=== PATIENT | male | born 1960 | race Caucasian/White ===

== ENCOUNTER 2021-08-10 00:30 | Day surgery (SDC) | payer BC, SELFPAY ==
[2021-07-21 14:38] VITALS: BMI 31.3
[2021-08-10 09:03] VITALS: BP 105/68; PULSE 99; RESP 18; TEMP 36.1; O2SAT 97; BMI 29.5
[2021-08-10] MEDS: LACTATED RINGERS 1,000 ML 150 ML IV CONT (09:19)
--- NOTE | 2021-08-10 09:40 | WPDGICN ---
Assessment and Plan Assessment and plan (1) Positive colorectal cancer screening using Cologuard test: Code(s): R19.5 - Other fecal abnormalities Status: Acute Assessment and Plan: Patient presents for screening colonoscopy. Found to have positive Cologuard test. Further recommendations will be given after endoscopy. GI Consult Note Consult date/time: 08/10/21 09:40 HPI: Efren Hinojosa is a 61 year old male Presents for screening colonoscopy. Patient recently found to have positive Cologuard test. Patient reports that his current weight appetite and bowel movements are normal. He denies abdominal pain. He has had no bleeding. Family history is noncontributory. Review of Systems Review of Systems: All systems reviewed & are unremarkable except as noted in HPI and below PMFSH Past Medical History Medical History Dyslipidemia Elevated lipids Erectile dysfunction Essential (primary) hypertension Mixed restrictive and obstructive lung disease Type 2 diabetes mellitus without complication, without long-term current use of insulin Surgical History Surgical History S/P cubital tunnel release 2005 - left Family History Family History Mother Patient's mother is Father Patient's father is Other Diabetes mellitus Family history of cardiovascular disease Hypertension Social History Social History (Updated 01/31/21 @ 13:09 by Leia Rodriguez [facility]) Smoking packs per day: 1.5 Smoking cigarettes per day: 30.0 Years smoked: 30 Smoking pack-years: 45.00 Smoking status: Current every day smoker Tobacco type: e-cigarettes/vaping Second hand tobacco smoke exposure: No Smoking end date: 05/05/20 Alcohol intake: current Alcohol use details: rarely Substance use: never Substance use type: does not use Living arrangements: with family Spiritual care concerns: No Meds Home Medications and Allergies Home Medications Medication Instructions Recorded Confirmed Type sildenafil 50 mg tablet 50 mg PO DAILY PRN 06/25/19 07/21/21 History rosuvastatin 10 mg tablet 10 mg PO DAILY tablet 12/08/20 07/21/21 History telmisartan 80 1 tablet PO DAILY tablet 12/08/20 07/21/21 History mg-hydrochlorothiazide 25 mg tablet albuterol sulfate 1 - 2 puff INHALATION Q4-6H PRN 07/21/21 07/21/21 History umeclidinium-vilanterol [Anoro 1 inh INHALATION DAILY 07/21/21 08/10/21 History Ellipta] Allergies Allergy/AdvReac Type Severity Reaction Status Date / Time No Known Allergies Allergy Verified 07/21/21 14:37 Vital Signs Vital Signs - 24 hr 08/10/21 09:03 Temperature 97 F L Pulse Rate 99 Respiratory Rate 18 Blood Pressure 105/68 Pulse Oximetry 97 Exam Narrative: Physical exam reveals patient to be alert. Vital signs stable. HEENT exam is unremarkable. Patient is anicteric. Lungs are clear to auscultation and percussion. Heart is without murmur or extra sounds. Abdominal exam bowel sounds are present soft nontender with no hepatosplenomegaly. Digital external rectal exam is normal.
--- NOTE | 2021-08-10 09:44 | WPDANESEPPF ---
Anes - Initial Pre Proc Eval Procedure: Operation Date: 08/10/21 10:00 Proposed Procedures p Colonoscopy - John Jimenez MD Date/Time: 08/10/21 09:44 Surgeon: John Jimenez MD Pre Op Diagnosis: positive cologuard Patient Data Age: 61 Gender: M Height: 1.68 m Weight: 83.1 kg Last Vital Signs Temp 97 F L 08/10/21 09:03 Pulse 99 08/10/21 09:03 Resp 18 08/10/21 09:03 BP 105/68 08/10/21 09:03 Pulse Ox 97 08/10/21 09:03 Allergies Allergy/AdvReac Type Severity Reaction Status Date / Time No Known Allergies Allergy Verified 07/21/21 14:37 Home Medications Medication Instructions Recorded Confirmed Type sildenafil 50 mg tablet 50 mg PO DAILY PRN 06/25/19 07/21/21 History rosuvastatin 10 mg tablet 10 mg PO DAILY tablet 12/08/20 07/21/21 History telmisartan 80 1 tablet PO DAILY tablet 12/08/20 07/21/21 History mg-hydrochlorothiazide 25 mg tablet albuterol sulfate 1 - 2 puff INHALATION Q4-6H PRN 07/21/21 07/21/21 History umeclidinium-vilanterol [Anoro 1 inh INHALATION DAILY 07/21/21 08/10/21 History Ellipta] Patient hx anesthesia problems: none Family hx anesthesia problems: none Results Review: All pre-operative results and documents have been reviewed as part of the pre-operative evaluation. [facility] Past Medical History Medical History Dyslipidemia Elevated lipids Erectile dysfunction Essential (primary) hypertension Mixed restrictive and obstructive lung disease Type 2 diabetes mellitus without complication, without long-term current use of insulin Surgical History Surgical History S/P cubital tunnel release 2005 - left Family History Family History Mother Patient's mother is Father Patient's father is Other Diabetes mellitus Family history of cardiovascular disease Hypertension Social History Social History (Updated 01/31/21 @ 13:09 by Leia Rodriguez [facility]) Smoking packs per day: 1.5 Smoking cigarettes per day: 30.0 Years smoked: 30 Smoking pack-years: 45.00 Smoking status: Current every day smoker Tobacco type: e-cigarettes/vaping Second hand tobacco smoke exposure: No Smoking end date: 05/05/20 Alcohol intake: current Alcohol use details: rarely Substance use: never Substance use type: does not use Living arrangements: with family Spiritual care concerns: No Anes - Eval Final PreProcedure Day of Procedure 08/10/21 09:44 Patient weight: overweight Heart: regular rate and rhythm Lungs: clear to auscultation Airway: Mallampati scale class II Neurological: alert and oriented Last oral intake: >/= 8 hours ASA classification: III Emergent: no Anesthetic plan: proceed Anesthesia type and monitoring: general GIVS and standard monitoring Results Review: All pre-operative results and documents have been reviewed as part of the pre-operative evaluation. Informed Consent: The patient's anesthetic plan and its attendant risks and benefits were discussed with the patient/family/POA. Questions were solicited and answers provided to the satisfaction of the patient/family/POA.
[2021-08-10 10:44] VITALS: BP 90/52; PULSE 72; RESP 23; O2SAT 97
[2021-08-10 10:54] VITALS: BP 104/67; PULSE 73; RESP 27; O2SAT 99
[2021-08-10 11:04] VITALS: BP 110/66; PULSE 69; RESP 21; O2SAT 100
== END 2021-08-10 11:14 | disposition home or self-care (01) ==
PROVIDERS: PCP Family Medicine; Visit Provider Internal Medicine Gastroenterology
PROC: 0DJD8ZZ Inspection of Lower Intestinal Tract, Via Natural or Artificial Opening Endoscopic (ICD-10-PCS; CPT 45378; principal; 2021-08-10 10:00)
DX: R19.5 Other fecal abnormalities (principal); K63.5 Polyp of colon; K64.8 Other hemorrhoids; K57.30 Diverticulosis of large intestine without perforation or abscess without bleeding; E78.5 Hyperlipidemia, unspecified; I10 Essential (primary) hypertension; E11.9 Type 2 diabetes mellitus without complications; J44.9 Chronic obstructive pulmonary disease, unspecified; F17.290 Nicotine dependence, other tobacco product, uncomplicated; Z79.51 Long term (current) use of inhaled steroids
CPT/HCPCS: 45385; 88305; J2370; J2704; J7120

== ENCOUNTER 2022-01-29 06:45 | Outpatient (CLI) | payer BC, SELFPAY ==
--- NOTE | ~2022-01-29 | CT_ITS ---
EXAMINATION: CT lung screening DATE: 01/29/2022 07:02 INDICATION: Personal history of nicotine dependence, current smoker with 40 pack year history TECHNIQUE: Computed tomography (CT) of the chest was performed without intravenous contrast. The dose -length product (DLP) was 141.32 mGy-cm. Automated exposure control and iterative reconstruction tech Amaru were employed. COMPARISON: 12/09/2018 FINDINGS: There is mild emphysema. No suspicious pulmonary nodules are identified. Calcified pulmonar y nodules and calcified left hilar lymph nodes are consistent with old granulomatous disease. The venkatesh gs are free of acute opacities. There is mild bilateral gynecomastia. No pathologically enlarged thor acic lymph nodes are identified. The heart size is normal. Calcified coronary artery atherosclerosis is noted. There is a 4.8 cm cyst of the right kidney. There is moderate thoracic spondylosis. IMPRESSION: 1. Lung-RADS category 1: Negative. Continue annual screening with noncontrast low-dose chest CT in 12 months. Reviewed, dictated and finalized at location A. IMPRESSION: 1. Lung-RADS category 1: Negative. Continue annual screening with noncontrast l ow-dose chest CT in 12 months.
--- NOTE | 2022-01-29 12:28 | WPDPFTINT ---
PFT Procedure Performed PFT Procedure Performed Spirometry with Pre/Post Bronchodilator Plethysmography (Lung Vol) Diffusing Cap (DLCO) Flow Vol Loop PFT Interpretation This is a pulmonary function test with pre and post-bronchodilator spirometry, plethysmography and diffusing capacity. The test was performed and results interpreted in accordance with the 2019 and 2005 ATS/ERS Task Force guidelines respectively using the Global Lung Function Initiative-2012 reference equations. Patient demonstrated good effort and cooperation. Reproducibility criteria were met. The quality of the pre bronchodilator spirometry maneuver was Grade A and post bronchodilator spirometry maneuver was Grade A. Findings: Spirometry: The contour of the pre bronchodilator expiratory flow tracing is normal in 1 maneuver, is notched in 1 maneuver, and has a knee pattern in the 3rd maneuver. The contour of the post bronchodilator expiratory flow tracing is notched in 1 maneuver and has a knee pattern in 2 maneuvers. The contour the inspiratory flow tracing is normal in 1 pre bronchodilator maneuver and truncated in the other 2. The contour of the inspiratory flow tracing is normal in 2 post bronchodilator maneuvers and truncated in 1 maneuver. The pre bronchodilator FVC is 2.74 L, 69% predicted. The pre bronchodilator FEV1 is 2.25 L, 73% predicted. The pre bronchodilator FEV1: FVC ratio was 82%. The post bronchodilator FVC is 2.85 L, representing a 4% increase. The post bronchodilator FEV1 is 2.34 L, representing a 4% increase. The post bronchodilator FEV1: FVC ratio was 82%. Plethysmography: The total lung capacity is 3.65 L, 59% predicted. Functional residual capacity is 1.55 L, 49% predicted. The residual volume is 0.52 L, 25% predicted. Diffusing capacity: The diffusion capacity unadjusted for hemoglobin and carboxyhemoglobin is 16.6, 63% predicted. The diffusing capacity adjusted for alveolar volume is 4.18, 95% predicted. In comparison to previous pulmonary function testing on 09/26/2018 in which there is only 1 pre and 1 post bronchodilator flow tracing illustrated, the post bronchodilator maneuver demonstrates a knee pattern where as the pre bronchodilator maneuver is normal. Both inspiratory flow tracings are truncated. The post bronchodilator FVC is unchanged from 2.67 L to 2.85 L. The post bronchodilator FEV1 is unchanged from 2.09 L to 2.34 L. The total lung capacity is decreased from 4.79 L to 3.65 L. The functional residual capacity is decreased from 3.10 L to 1.55 L. The residual volume is decreased from 2.27 L to 0.52 L. The diffusion capacity unadjusted for hemoglobin and carboxyhemoglobin is increased from 13.5 to 16.6. The diffusing capacity adjusted for alveolar volume is unchanged from 4.66 to 4.18. Impression: Collectively the contour of the expiratory flow tracing ranges from normal, to a notched pattern and to a knee pattern. 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 The knee pattern can be a normal variant or pathologic and has been attributed to a choke point section of the bronchial tree. The normal variant is more common in younger female patients, decreases with age and is more pronounced in the post bronchodilator efforts. The pattern has also been described with kyphosis, kyphoscoliosis, central obstructing mass, and post lung transplantation. There is a mild restrictive ventilatory abnormality. There is no evidence of an obstructive abnormality. There is no significant improvement after inhaling a single dose of albuterol. The diffusing capacity unadjusted for hemoglobin and carboxyhemoglobin is mildly decreased and normalizes when adjusted for alveolar volume. In comparison to prior pulmonary function tests on 09/26/2018 the knee pattern on the expiratory flow tracing was noted. There has been a greater than anticipated time dependent decrease in the total lung capacity, functional residual capacity
== END 2022-01-29 06:46 | disposition home or self-care (01) ==
LOC: ANHIMG 06:46
PROVIDERS: PCP Family Medicine; Visit Provider Internal Medicine Critical Care Medicine
DX: Z12.2 Encounter for screening for malignant neoplasm of respiratory organs (principal); Z87.891 Personal history of nicotine dependence; J43.9 Emphysema, unspecified; J98.4 Other disorders of lung; R94.2 Abnormal results of pulmonary function studies
CPT/HCPCS: 71271; 94060; 94726; 94729

== ENCOUNTER 2022-07-12 09:56 | Outpatient (CLI) | payer BC, SELFPAY ==
[2022-07-12 19:10] LABS: Hemoglobin A1C 6.3 % (<5.7)
[2022-07-12 19:22] LABS: Alanine Aminotransferase 27 U/L (6-50); Albumin Level 4.6 g/dL (3.5-5.1); Alkaline Phosphatase 67 U/L (38-126); Anion Gap 7 mmol/L (8-16); Aspartate Amino Transferase 50 U/L (17-59); Bilirubin,Total 0.4 mg/dL (0.2-1.3); Blood Urea Nitrogen 15 mg/dL (9-20); Calcium 9.7 mg/dL (8.4-10.2); Carbon Dioxide 32 mmol/L (22-30); Chloride 97 mmol/L (98-107); Estimated Glomerular Filt Rate > 60; Glucose 97 mg/dL (65-110); Potassium 4.3 mmol/L (3.4-5.0); Sodium 136 mmol/L (137-145)
[2022-07-12 21:39] LABS: Vitamin D 25 Hydroxy 68.9 ng/mL
== END 2022-07-12 09:57 | disposition home or self-care (01) ==
LOC: ANHGOSHLAB 09:58
PROVIDERS: PCP Family Medicine; Visit Provider Family Medicine
DX: E55.9 Vitamin D deficiency, unspecified (principal); I10 Essential (primary) hypertension; E11.9 Type 2 diabetes mellitus without complications
CPT/HCPCS: 36415; 80053; 82306; 83036

== ENCOUNTER 2022-07-21 10:41 | Outpatient (CLI) | payer BC, SELFPAY ==
--- NOTE | 2022-07-21 11:05 | ECHO_ITS ---
Patient Info Name: Efren Hinojosa Age: 61 years : 1960 Gender: Male Ht: 66 in Wt: 184 lbs BSA: 2.00 m2 HR: 82 bpm BP: 120 / 78 mmHg Heart Rhythm: Sinus Rhythm Technical Quality: Fair Exam Date: 07/21/2022 11:12 AM Exam Location: [facility] Pulmonary Patient Status: Outpatient Admit Date: 07/21/2022 Staff Ordering Physician: Roddy Espinoza MD Rn Angiography: Jennifer Alejandre RDCS Attending Provider: Roddy Espinoza MD Exam Type: CA echo doppler color flow Study Info Indications - cardiac murmur Complete two-dimensional, color flow and Doppler transthoracic echocardiogram is performed. Summary 1. Complete two-dimensional, color flow and Doppler transthoracic echocardiogram is performed. 2. Normal left ventricular size and thickness with good contractility of all segments. No focal wall motion abnormalities. Ejection fraction 65%. Normal diastolic function. 3. Trace mitral and tricuspid regurgitation. 4. Normal estimated pulmonary pressure. 5. Normal sinus rhythm. Left Ventricle Left ventricular chamber dimension is normal. Left ventricular systolic function is normal, estimated at Empty. There is no increased left ventricular wall thickness. Left ventricular septal wall motion is normal. The left ventricular diastolic function is normal. Right Ventricle Right ventricular chamber dimension is normal. Right ventricular systolic function is normal. Left Atria Left atrial chamber dimension is normal. Right Atria Right atrial chamber dimension is normal. Aortic Valve The aortic valve is trileaflet. There is no aortic valve sclerosis. There is no aortic valve stenosis. There is no aortic valve regurgitation. Pulmonic Valve The pulmonic valve is normal. There is no pulmonic valve stenosis. There is no pulmonic regurgitation. Mitral Valve The mitral valve has normal leaflets. There is no mitral valve stenosis. There is trace mitral valve regurgitation. Tricuspid Valve The tricuspid valve leaflets are normal. There is no significant tricuspid valve stenosis. There is trace tricuspid valve regurgitation. No pulmonary hypertension, estimated pulmonary arterial systolic pressure is 32 mmHg. Pericardium/Pleural The pericardium appears normal. There is no pericardial effusion. Inferior Vena Cava Normal inferior vena cava with >50% collapse upon inspiration consistent with Empty right atrial pressure, 10 mmHg. Aorta The aortic root size at the sinus of Valsalva is normal. The prox ascending aorta size is normal. Left Ventricular Outflow Tract Name Value Normal LVOT 2D LVOT Diameter 2.0 cm LVOT Doppler LVOT Peak Gradient 4 mmHg LVOT Mean Gradient 3 mmHg LVOT VTI 21 cm LVOT VTI/AV VTI Ratio 0.9 LVOT Stroke Volume 69 ml LVOT CO 15.8 l/min LVOT CI 7.9 l/min/m2 Pulmonic Valve
== END 2022-07-21 10:42 | disposition home or self-care (01) ==
LOC: ANHCARD 10:42
PROVIDERS: PCP Family Medicine; Visit Provider Family Medicine
DX: R01.1 Cardiac murmur, unspecified (principal); I10 Essential (primary) hypertension
CPT/HCPCS: 93306

== ENCOUNTER 2023-01-23 09:42 | Outpatient (CLI) | payer BC, SELFPAY ==
--- NOTE | ~2023-01-23 | CT_ITS ---
EXAMINATION: CT lung screening DATE: 01/23/2023 09:56 INDICATION: Personal history of nicotine dependence TECHNIQUE: Computed tomography (CT) of the chest was performed without intravenous contrast. The dose -length product was 136.97 mGy-cm. Automated exposure control and iterative reconstruction technique were employed. COMPARISON: CT dated 01/29/2022 FINDINGS: There is evidence for chronic granulomatous disease. There is atherosclerosis of the aorta and coronary artery. No significant pleural or pericardial effusion. Heart size is normal. There are right renal cysts. There is emphysema. No endobronchial lesions. No pneumothorax. No noncalcified pul monary nodules are seen. Moderate thoracic spondylosis. Accentuated thoracic kyphosis. No focal lytic or blastic lesions. IMPRESSION: 1. Lung-RADS category 1: Negative. Continue annual screening with noncontrast low-dose chest CT in 12 months. Reviewed, dictated and finalized at location [] IMPRESSION: 1. Lung-RADS category 1: Negative. Continue annual screening with noncontrast l ow-dose chest CT in 12 months.
== END 2023-01-23 09:43 | disposition home or self-care (01) ==
PROVIDERS: PCP Family Medicine; Visit Provider Internal Medicine Pulmonary Disease
DX: Z12.2 Encounter for screening for malignant neoplasm of respiratory organs (principal); Z87.891 Personal history of nicotine dependence
CPT/HCPCS: 71271

== ENCOUNTER 2023-07-02 08:58 | Outpatient (CLI) | payer BC, SELFPAY ==
[2023-07-02 13:48] LABS: Alanine Aminotransferase 34 U/L (6-50); Albumin Level 4.7 g/dL (3.5-5.1); Alkaline Phosphatase 78 U/L (38-126); Anion Gap 13 mmol/L (8-16); Aspartate Amino Transferase 46 U/L (17-59); Bilirubin,Total 0.6 mg/dL (0.2-1.3); Blood Urea Nitrogen 14 mg/dL (9-20); Calcium 9.9 mg/dL (8.4-10.2); Carbon Dioxide 29 mmol/L (22-30); Chloride 97 mmol/L (98-107); Estimated Glomerular Filt Rate > 60; Glucose 129 mg/dL (65-110); Sodium 139 mmol/L (137-145)
[2023-07-02 13:57] LABS: Hemoglobin A1C 6.4 % (<5.7)
== END 2023-07-02 08:59 | disposition home or self-care (01) ==
LOC: ANHGOSHLAB 09:00
PROVIDERS: PCP Family Medicine; Visit Provider Family Medicine
DX: E11.9 Type 2 diabetes mellitus without complications (principal); I10 Essential (primary) hypertension
CPT/HCPCS: 36415; 80053; 83036

== ENCOUNTER 2024-01-02 09:19 | Outpatient (CLI) | payer BC, SELFPAY ==
[2024-01-02 13:28] LABS: Hemoglobin 15.5 g/dL (14.0-18.0); Mean Corpuscular HGB Conc 32.3 g/dl (32-36); Mean Corpuscular Hemoglobin 29.5 pg (26-34); Mean Corpuscular Volume 91.4 fl (80-100); Mean Platelet Volume 10.1 fl (7.4-10.4); Platelet Count Result 391 k/mm3 (150-375); Red Blood Count 5.25 M/mm3 (4.6-6.20); Red Cell Distribution Width 12.9 % (11.5-14.5); White Blood Count 11.4 K/mm3 (4.5-10.0)
[2024-01-02 13:39] LABS: Vitamin D 25 Hydroxy 50.5 ng/mL
[2024-01-02 13:41] LABS: Alanine Aminotransferase 28 U/L (6-50); Albumin Level 4.7 g/dL (3.5-5.1); Alkaline Phosphatase 77 U/L (38-126); Anion Gap 7 mmol/L (4-12); Aspartate Amino Transferase 32 U/L (17-59); Bilirubin,Total 0.5 mg/dL (0.2-1.3); Blood Urea Nitrogen 17 mg/dL (9-20); Calcium 9.8 mg/dL (8.4-10.2); Carbon Dioxide 30 mmol/L (22-30); Chloride 102 mmol/L (98-107); Cholesterol 158 mg/dL (0-200); Estimated Glomerular Filt Rate > 60; Glucose 122 mg/dL (65-110); HDL Direct 35 mg/dL; Potassium 4.1 mmol/L (3.4-5.0); Sodium 139 mmol/L (137-145); Triglycerides 131 mg/dL (<150)
[2024-01-02 13:53] LABS: LDL Cholesterol Direct 101 mg/dL
[2024-01-02 13:54] LABS: Creatinine Urine 66.3 mg/dL
[2024-01-02 13:58] LABS: MALB Creatinine Ratio 25.3 mg/g (0-30); Microalbumin Urine Random 16.8 mg/L (0-16.7)
[2024-01-02 14:08] LABS: Hepatitis C Virus Antibody Negative (Negative)
[2024-01-02 14:11] LABS: Prostate Specific Antigen 0.8 ng/mL (< OR = 4.0); Thyroid Stimulating Hormone 0.995 uIU/mL (0.465-4.680)
[2024-01-02 21:28] LABS: Hemoglobin A1C 6.1 % (<5.7)
== END 2024-01-02 09:20 | disposition home or self-care (01) ==
LOC: ANHGOSHLAB 09:21
PROVIDERS: PCP Family Medicine; Visit Provider Nurse Practitioner
DX: Z00.00 Encounter for general adult medical examination without abnormal findings (principal); Z11.59 Encounter for screening for other viral diseases; Z12.5 Encounter for screening for malignant neoplasm of prostate; E55.9 Vitamin D deficiency, unspecified; E11.9 Type 2 diabetes mellitus without complications
CPT/HCPCS: 36415; 80053; 80061; 82043; 82306; 83036; 84153; 84443; 85027; 86803; G0103

== ENCOUNTER 2024-01-31 08:11 | Outpatient (CLI) | payer BC, SELFPAY ==
[2024-01-31 12:45] LABS: Hematocrit 44.9 % (42.0-52.0); Hemoglobin 14.4 g/dL (14.0-18.0); Mean Corpuscular HGB Conc 32.1 g/dl (32-36); Mean Corpuscular Hemoglobin 29.4 pg (26-34); Mean Corpuscular Volume 91.8 fl (80-100); Mean Platelet Volume 10.3 fl (7.4-10.4); Platelet Count Result 371 k/mm3 (150-375); Red Blood Count 4.89 M/mm3 (4.6-6.20); Red Cell Distribution Width 12.9 % (11.5-14.5); White Blood Count 12.4 K/mm3 (4.5-10.0)
== END 2024-01-31 08:12 | disposition home or self-care (01) ==
LOC: ANHGOSHLAB 08:12
PROVIDERS: PCP Family Medicine; Visit Provider Nurse Practitioner Family
DX: Z00.00 Encounter for general adult medical examination without abnormal findings (principal); E11.9 Type 2 diabetes mellitus without complications; I10 Essential (primary) hypertension
CPT/HCPCS: 36415; 85027

== ENCOUNTER 2024-01-31 09:21 | Outpatient (CLI) | payer BC, SELFPAY ==
--- NOTE | ~2024-01-31 | CT_ITS ---
CT Scan of the Chest without Contrast: Clinical Indication: Lung cancer screening, nicotine dependence Technique: Contiguous sections were acquired throughout the chest without intravenous contrast. Dose reduction technique was used on this scan by utilizing automated exposure control and iterative recon struction technique. The dose-length product (DLP) was 114.11 mGy-cm. COMPARISON: 01/23/2023 Findings: There is no evidence of any significant mediastinal, hilar or axillary lymphadenopathy. There are ath erosclerotic calcifications of the aorta and coronary arteries. There is no evidence of pleural or pericardial effusion. The lungs are clear. No pulmonary nodules or infiltrates are noted. Images through the upper abdomen reveal no abnormalities. Impression: Lung RADS 1: Negative. 12 month follow-up screening CT advised. Reviewed, dictated and finalized at [facility]. Impression: Lung RADS 1: Negative. 12 month follow-up screening CT advised.
== END 2024-01-31 09:22 | disposition home or self-care (01) ==
LOC: ANHIMG 09:23
PROVIDERS: PCP Family Medicine; Visit Provider Internal Medicine Pulmonary Disease
DX: Z12.2 Encounter for screening for malignant neoplasm of respiratory organs (principal); Z87.891 Personal history of nicotine dependence
CPT/HCPCS: 71271

== ENCOUNTER 2024-02-25 15:07 | Outpatient (CLI) | payer BC, SELFPAY ==
[2024-02-25 15:31] LABS: Basophils Absolute Auto 0.1 K/mm3 (0.0-0.1); Basophils Percent Auto 0.6 % (0.2-1.2); Eosinophils Absolute Auto 0.1 K/mm3 (0-0.3); Eosinophils Percent Auto 1.3 % (0-4.4); Hematocrit 39.2 % (42.0-52.0); Hemoglobin 12.9 g/dL (14.0-18.0); Immature Granulocyte Absolute 0.03 K/mm3 (0.00-0.031); Immature Granulocyte Percent A 0.3 % (0-0.5); Lymphocytes Percent Auto 20.8 % (18.3-44.2); Mean Corpuscular HGB Conc 32.9 g/dl (32-36); Mean Corpuscular Hemoglobin 29.6 pg (26-34); Mean Corpuscular Volume 89.9 fl (80-100); Mean Platelet Volume 9.4 fl (7.4-10.4); Monocytes Absolute Auto 0.7 K/mm3 (0.1-0.6); Monocytes Percent Auto 6.7 % (2.6-8.5); Neutrophils Absolute Auto 7.1 K/mm3 (1.3-6.7); Neutrophils Percent Auto 70.3 % (45.5-73.1); Platelet Count Result 341 k/mm3 (150-375); Red Blood Count 4.36 M/mm3 (4.6-6.20); Red Cell Distribution Width 12.8 % (11.5-14.5); White Blood Count 10.1 K/mm3 (4.5-10.0)
[2024-02-25 16:37] LABS: Iron 49 ug/dL (49-181)
[2024-02-25 16:43] LABS: Alanine Aminotransferase 24 U/L (6-50); Albumin Level 4.4 g/dL (3.5-5.1); Alkaline Phosphatase 67 U/L (38-126); Anion Gap 9 mmol/L (4-12); Aspartate Amino Transferase 26 U/L (17-59); Bilirubin,Total 0.3 mg/dL (0.2-1.3); Blood Urea Nitrogen 15 mg/dL (9-20); CRP 1.7 mg/dL (<1.0); Calcium 9.2 mg/dL (8.4-10.2); Carbon Dioxide 28 mmol/L (22-30); Chloride 100 mmol/L (98-107); Estimated Glomerular Filt Rate > 60; Glucose 94 mg/dL (65-110); Potassium 3.7 mmol/L (3.4-5.0); Sodium 137 mmol/L (137-145)
[2024-02-25 16:47] LABS: Percent Iron Saturation 16 % (20-50)
[2024-02-25 16:49] LABS: Erythrocyte Sedimentation Rate 39 mm/hr (0-20)
== END 2024-02-25 15:08 | disposition home or self-care (01) ==
LOC: ANHLAB 15:09
PROVIDERS: PCP Family Medicine; Visit Provider Nurse Practitioner Family
DX: D72.829 Elevated white blood cell count, unspecified (principal); D50.9 Iron deficiency anemia, unspecified
CPT/HCPCS: 36415; 80053; 82728; 83540; 83550; 85025; 85652; 86140; 88184

== ENCOUNTER 2025-02-01 12:55 | Outpatient (CLI) | payer BC, SELFPAY ==
--- NOTE | ~2025-02-01 | CT_ITS ---
CT Scan of the Chest without Contrast: Clinical Indication: Lung cancer screening, nicotine dependence Technique: Contiguous sections were acquired throughout the chest without intravenous contrast. Dose reduction technique was used on this scan by utilizing automated exposure control and iterative recon struction technique. The dose-length product (DLP) was 98.31 mGy-cm. COMPARISON: 01/31/2024 Findings: There is no evidence of any significant mediastinal, hilar or axillary lymphadenopathy. There are ext ensive atherosclerotic calcifications of the aorta and coronary arteries. There is no evidence of pleural or pericardial effusion. The lungs are clear. No pulmonary nodules or infiltrates are noted. Images through the upper abdomen reveal no abnormalities. Impression: Lung RADS 1: Negative. [address] advised. Reviewed, dictated and finalized at location . Impression: Lung RADS 1: Negative. [address] advised.
--- OUTSIDE RECORDS SUMMARY | 2025-02-01 13:08 | XMS_ITS | Clinical Summary ---
Author Organization [facility] Address [address] [place] [address] [place] [address] Care Team Providers Care Clin Application Specialist Name Role Phone Aditya Espinoza MD Primary Care Provider Allergies No known active allergies Medications Telmisartan-Hyd rochlorothiazid 80-25 mg Tablet Take by mouth. Active rosuvastatin (CRESTOR) 10 mg tablet Take 10 mg by mouth daily. Active metFORMIN (GLUCOPHAGE) 500 mg tablet Take 500 mg by mouth 2 times daily with meals. Active amLODIPine (NORVASC) 5 mg tablet Take 5 mg by mouth daily. Active albuterol sulfate HFA 90 mcg/actuation aerosol inhaler Take 2 Puffs by inhalation every 6 hours as needed for Shortness of Breath. Active sildenafiL (VIAGRA) 100 mg tablet Take 100 mg by mouth 1 time daily as needed for Erectile Dysfunction. Active Active Problems No known active problems Family History Medical History Relation Name Comments No Known Problems Brother No Known Problems Child 1 No Known Problems Child 2 No Known Problems Father Breast Cancer Mother Diabetes Mother Uterine Cancer Mother No Known Problems Sister 1 No Known Problems Sister 2 Relation Name Status Comments Brother Alive Child 1 Alive Child 2 Alive Father Mother Sister 1 Alive Sister 2 Alive Social History Tobacco Use Types Packs/Day Years Used Date Smoking Tobacco: Every Day Cigarettes 1 50.9 Started: 02/24/1974 Smokeless Tobacco: Never Tobacco Cessation:Ready to Q uit: Not Asked; Counseling Given: Not Answered Alcohol Use Standard Drinks/Week Comments Yes 0 (1 standard drink = 0.6 oz pur e alcohol) Socially Sex and Gender Information Value Date Recorded Sex Assigned at Not on file Legal Sex Male 10:14 AM CDT Gender Identity Not on file Sexual Orientation Not on file Last Filed Vital Signs Vital Sign Reading Time Taken Comments Blood Pressure 133/76 02/25/2024 2:26 PM CDT Pulse 76 02/25/2024 2:26 PM CDT Temperature 36.4 C (97.5 F) 02/25/2024 2:26 PM CDT Respiratory Rate 15 02/25/2024 2:26 PM CDT Oxygen Saturation 95% 02/25/2024 2:26 PM CDT Inhaled Oxygen Concentration - - Weight 81.1 kg (178 lb 12.8 oz) 02/25/2024 2:26 PM CDT Height 167.6 cm (5' 6) 02/25/2024 2:26 PM CDT Body Mass Index 28.86 02/25/2024 2:26 PM CDT Plan of Treatment Health Maintenance Due Date Last Done Comments Pre-Diabetes and Diabetes Screening 1960 DTAP/TDAP/TD VACCINES (1 - Tdap) 1978 PNEUMOCOCCAL VACCINE 50+ YEARS (1 of 2 - PCV) 07/26/19 78 COLORECTAL SCREENING 2004 Colorectal Cancer Screening 2004 FIT-DNA Q 3 years 2004 FIT/FOBT Q 1 year 2004 Flex Sig/CT Colonography Q 5 years 2004 Lung Cancer Screening 2009 ZOSTER VACCINE (1 of 2) 2009 INFLUENZA VACCINE (#1) 2024 Abdominal Aortic Aneurysm (AAA) Screening 2024 RSV VACCINE (60+ or ) (1 - 1-dose 75+ series) 2034 Insurance [facility] BLUE ACCESS CHOICE Care Teams Clin Application Specialist Relationship Specialty Start Date End Date Aditya Espinoza MD [address] [place] [id number] PCP - General Family Practice 02/05/24
== END 2025-02-01 12:56 | disposition home or self-care (01) ==
PROVIDERS: PCP Family Medicine; Visit Provider Nurse Practitioner Family
DX: Z12.2 Encounter for screening for malignant neoplasm of respiratory organs (principal); Z87.891 Personal history of nicotine dependence
CPT/HCPCS: 71271